=== PATIENT | male | born 1945 | race African-American/Black ===

== ENCOUNTER 2016-10-20 15:57 | Emergency (ER) | payer OTHER ==
[~2016-10-20] VITALS: Ht 188 cm; Wt 79.8 kg
[~2016-10-20 15:57] MED LIST: GLY5T
[2016-10-20] MEDS ORDERED: SODIUM CHLORIDE 0.9% 1,000 ML IV ONE (16:21)
[2016-10-20] MEDS ORDERED: methylPREDNISolone SOD SUCC 125 MG/2 ML VL IV ONE (16:30)
[2016-10-20] MEDS ORDERED: diphenhdrAMINE HCL 50 MG/1 ML VL IV ONE (16:30)
[2016-10-20 16:41] LABS: Basophils # (auto) 0 uL; Basophils % (auto) 0.3 % (0.0-2.0); CONDITION Y; Eosinophils # (auto) 0.1 uL; Eosinophils % (auto) 2.7 % (0.0-7.0); Hematocrit 33.5 % (41.0-53.0); Hemoglobin 11.3 g/dL (13.5-17.5); Lymphocytes # (auto) 1.4 uL; Lymphocytes % (auto) 26.5 % (10.0-50.0); Mean Corpuscular Hgb Conc. 33.6 g/dL (32.0-36.0); Mean Corpuscular Volume 86.6 fL (80.0-100.0); Mean Platelet Volume 8.5 fL (7.4-10.4); Monocytes # (auto) 0.4 uL; Monocytes % (auto) 8.1 % (0.0-12.0); Neutrophils # (auto) 3.3 uL; Neutrophils % (auto) 62.4 % (37.0-80.0); Platelet Count (auto) 259 10^3/uL (140-450); Red Cell Distribution Width 14.2 % (11.6-16.0); White Blood Cell 5.3 10^3/uL (4.4-10.8)
[2016-10-20 16:55] VITALS: BP 153/75
[2016-10-20 17:03] LABS: Albumin 3.3 g/dL (3.4-5.0); Anion Gap 7 (5-15); Aspartate Aminotransferase 9 U/L (15-37); BUN/Creatinine Ratio 8.3; Blood Urea Nitrogen 17 mg/dL (7-18); Calcium 9.1 mg/dL (8.5-10.1); Carbon Dioxide 25 mmol/L (21-32); Chloride 109 mmol/L (98-107); GFR African American 42 mL/min; GFR Non-African American 34 mL/min; Glucose 74 mg/dL (74-106); Potassium 4.1 mmol/L (3.5-5.1); Sodium 141 mmol/L (136-145)
[2016-10-20 17:16] LABS: Alkaline Phosphatase 63 U/L (45-117); Bilirubin, Total 0.4 mg/dL (0.2-1.0); Total Protein 6.8 g/dL (6.4-8.2)
== END 2016-10-20 17:57 | disposition home or self-care (01) ==
LOC: EDUNIT# 15:57 → EDBD 15:57 → ER 16:08
DX: T78.40XA Allergy, unspecified, initial encounter (principal); E11.9 Type 2 diabetes mellitus without complications; I10 Essential (primary) hypertension
CPT/HCPCS: 36415; 71010; 80053; 84484; 85025; 96361; 96374; 96375; 99285; J1200; J2930; J7030

== ENCOUNTER 2021-06-07 19:23 | Inpatient (IN) | payer OTHER ==
[~2021-06-07] VITALS: Ht 188 cm; Wt 89.7 kg
[~2021-06-07 19:23] MED LIST changes: -GLY5T; +GLYB5TAB9
[2021-06-07 20:24] LABS: Hematocrit 41.5 % (41.0-53.0); Hemoglobin 13.8 g/dL (13.5-17.5); Mean Corpuscular Hemoglobin 28.4 pg (28.0-32.0); Mean Corpuscular Hgb Conc. 33.4 g/dL (32.0-36.0); Mean Corpuscular Volume 85.3 fL (80.0-100.0); Red Blood Cells 4.87 10^6/uL (4.5-5.90); Red Cell Distribution Width 13.6 % (11.8-14.3); White Blood Cell 9.6 10^3/uL (4.4-10.8)
[2021-06-07 20:32] LABS: Band Neutrophils % (manual) 0; Basophils % (manual) 0 (0.0-2.0); Blast Cells 0; Eosinophils % (manual) 0 (0-7); Metamyelocytes % 0; Myelocytes % 0; Promyelocytes % 0; Reactive Lymphocytes 0
[2021-06-07 20:33] LABS: BUN/Creatinine Ratio 18.5; Calcium 10.1 mg/dL (8.5-10.1); Potassium 5.2 mmol/L (3.5-5.1)
[2021-06-07 20:38] LABS: Bilirubin, Total 0.5 mg/dL (0.2-1.0); Total Protein 6.6 g/dL (6.4-8.2)
[2021-06-07 21:04] LABS: Lymphocytes % (manual) 4 (10.0-50.0); Monocytes % (manual) 4 (0-12)
[2021-06-08 01:16] LABS: Urine Bacteria FEW /hpf (None Seen); Urine Blood Negative /uL (Negative); Urine Hyaline Cast FEW /lpf (0 - 2); Urine Mucus FEW (None Seen); Urine Specific Gravity 1.014 (1.001-1.035); Urine WBC 2 /hpf (0 - 3)
[2021-06-08] MEDS: SODIUM CHLORIDE 0.9% 1,000 ML IV SCH ×3 (06:15→20:43)
[2021-06-08] MEDS ORDERED: ACETAMINOPHEN 325 MG TAB PO PRN (06:15)
[2021-06-08] MEDS ORDERED: InsuLIN REG 1unit/0.01ml Soln (100units/ml) IV ONE (06:15)
[2021-06-08] MEDS ORDERED: SODIUM CHLORIDE 0.9% 500 ML IV ONE (06:15)
[2021-06-08] MEDS ORDERED: ONDANSETRON HCL 4 MG/2 ML VIAL IV PRN (06:15)
[2021-06-08 07:00] LABS: Basophils # (auto) 0.1 10 ^3/uL (0-0.2); Basophils % (auto) 0.7 % (0.0-2.0); Eosinophils # (auto) 0 10 ^3/uL (0-0.8); Eosinophils % (auto) 0.2 % (0.0-7.0); Hematocrit 34.9 % (41.0-53.0); Lymphocytes # (auto) 1.1 10 ^3/uL (0.4-5.4); Lymphocytes % (auto) 10.5 % (10.0-50.0); Mean Corpuscular Hemoglobin 28.9 pg (28.0-32.0); Mean Corpuscular Hgb Conc. 34.2 g/dL (32.0-36.0); Mean Corpuscular Volume 84.3 fL (80.0-100.0); Monocytes # (auto) 1.1 10 ^3/uL (0-1.3); Monocytes % (auto) 11.4 % (0.0-12.0); Neutrophils # (auto) 7.7 10 ^3/uL (1.6-8.6); Neutrophils % (auto) 77.2 % (37.0-80.0); Red Blood Cells 4.14 10^6/uL (4.5-5.90); Red Cell Distribution Width 13.8 % (11.8-14.3)
[2021-06-08 07:32] LABS: Albumin 2.7 g/dL (3.4-5.0); Calcium 9.3 mg/dL (8.5-10.1); Potassium 5.4 mmol/L (3.5-5.1)
[2021-06-08 07:37] LABS: Bilirubin, Total 0.4 mg/dL (0.2-1.0); Total Protein 5.8 g/dL (6.4-8.2)
[2021-06-08] MEDS ORDERED: ATO40T PO (09:03)
[2021-06-08] MEDS ORDERED: SILD50TA42 PO (09:03)
[2021-06-08] MEDS ORDERED: HYDR-4296 PO (09:03)
[2021-06-08] MEDS ORDERED: AMLO-489 PO (09:03)
[2021-06-08] MEDS ORDERED: HYDR-4902 PO (09:03)
[2021-06-08] MEDS ORDERED: GLIM2TAB33 PO (09:03)
[2021-06-08] MEDS: PANTOPRAZOLE 40 MG TAB PO SCH (11:08)
[2021-06-08] MEDS: InsuLIN REG 1unit/0.01ml Soln (100units/ml) SC SCH ×3 (11:30→22:00)
[2021-06-08] MEDS: ACCU-CHEK COMFORT CURVE STRIP VI SCH ×3 (11:30→22:00)
[2021-06-08] MEDS ORDERED: hydrALAZINE HCL 25 MG TAB PO ONE (11:30)
[2021-06-08] MEDS ORDERED: amLODIPine BESYLATE 5 MG TAB PO ONE (11:30)
[2021-06-08] MEDS ORDERED: DEXTROSE (50%) 50ML SYRG IV SCH (11:30)
[2021-06-08] MEDS ORDERED: SODIUM ZIRCONIUM CYCL 10 GM PAK PO SCH (12:00)
[2021-06-08 13:00] VITALS: BP 155/80
[2021-06-08] MEDS ORDERED: HEPARIN SODIUM (PORCINE) 5000 UNITS/ML 1ML VIAL SC SCH (14:00)
[2021-06-08 17:00] VITALS: BP 153/76
[2021-06-08 20:34] LABS: Sodium Urine 20 mmol/L (40-220)
[2021-06-08 20:37] LABS: Creatinine, Urine 64 mg/dL (30.0-125.0)
[2021-06-08] MEDS: SODIUM ZIRCONIUM CYCL 10 GM PAK PO SCH (21:25)
[2021-06-08 22:00] VITALS: BP 136/69
[2021-06-08] MEDS ORDERED: ATORVASTATIN 20 MG TAB PO SCH (22:00)
[2021-06-08] MEDS: hydrALAZINE HCL 25 MG TAB PO SCH (23:16)
[2021-06-09] MEDS: SODIUM ZIRCONIUM CYCL 10 GM PAK PO SCH ×2 (05:31→13:02)
[2021-06-09] MEDS: SODIUM CHLORIDE 0.9% 1,000 ML IV SCH ×3 (05:32→23:55)
[2021-06-09 06:00] VITALS: BP 118/59
[2021-06-09] MEDS: ACCU-CHEK COMFORT CURVE STRIP VI SCH ×4 (06:27→22:26)
[2021-06-09] MEDS: InsuLIN REG 1unit/0.01ml Soln (100units/ml) SC SCH ×4 (06:27→22:28)
[2021-06-09 09:00] VITALS: BP 135/70
[2021-06-09 09:02] LABS: Basophils # (auto) 0.1 10 ^3/uL (0-0.2); Basophils % (auto) 0.9 % (0.0-2.0); Eosinophils # (auto) 0.1 10 ^3/uL (0-0.8); Hematocrit 30.4 % (41.0-53.0); Hemoglobin 10.4 g/dL (13.5-17.5); Lymphocytes # (auto) 0.5 10 ^3/uL (0.4-5.4); Lymphocytes % (auto) 8.9 % (10.0-50.0); Mean Corpuscular Hemoglobin 28.8 pg (28.0-32.0); Mean Corpuscular Hgb Conc. 34.3 g/dL (32.0-36.0); Mean Corpuscular Volume 84.2 fL (80.0-100.0); Monocytes # (auto) 0.7 10 ^3/uL (0-1.3); Neutrophils # (auto) 4.7 10 ^3/uL (1.6-8.6); Neutrophils % (auto) 77.2 % (37.0-80.0); Nucleated Red Blood Cells % 0.1 %; Red Blood Cells 3.62 10^6/uL (4.5-5.90); Red Cell Distribution Width 13.9 % (11.8-14.3); White Blood Cell 6.1 10^3/uL (4.4-10.8)
[2021-06-09 09:08] LABS: Albumin 2.5 g/dL (3.4-5.0); Calcium 8.8 mg/dL (8.5-10.1); Potassium 4.3 mmol/L (3.5-5.1)
[2021-06-09 09:09] LABS: BUN/Creatinine Ratio 20.4; Bilirubin, Total 0.4 mg/dL (0.2-1.0); Total Protein 5.4 g/dL (6.4-8.2)
[2021-06-09] MEDS: PANTOPRAZOLE 40 MG TAB PO SCH (10:00)
[2021-06-09] MEDS: hydrALAZINE HCL 25 MG TAB PO SCH ×2 (10:00→22:26)
[2021-06-09] MEDS: amLODIPine BESYLATE 5 MG TAB PO SCH (10:00)
[2021-06-09 13:00] VITALS: BP 152/75
[2021-06-09 16:49] VITALS: BP 141/71
[2021-06-09 21:39] VITALS: BP 115/58
[2021-06-09 23:43] LABS: Urine Bacteria NONE SEEN /hpf (None Seen); Urine Blood 2+ /uL (Negative); Urine Specific Gravity 1.009 (1.001-1.035); Urine WBC 3 /hpf (0 - 3)
[2021-06-10] MEDS: SODIUM CHLORIDE 0.9% 1,000 ML IV SCH ×3 (02:07→16:35)
[2021-06-10 04:45] VITALS: BP 138/57
[2021-06-10] MEDS: ACCU-CHEK COMFORT CURVE STRIP VI SCH ×4 (06:29→22:28)
[2021-06-10] MEDS: InsuLIN REG 1unit/0.01ml Soln (100units/ml) SC SCH ×4 (06:30→22:29)
[2021-06-10] MEDS ORDERED: ADENOSINE 76 MG in GIVE UN-DILUTED 0 ML IV ONE (08:05)
[2021-06-10 09:05] VITALS: BP 140/69
[2021-06-10] MEDS: PANTOPRAZOLE 40 MG TAB PO SCH (10:31)
[2021-06-10] MEDS: hydrALAZINE HCL 25 MG TAB PO SCH ×2 (10:31→22:28)
[2021-06-10] MEDS: amLODIPine BESYLATE 5 MG TAB PO SCH (10:32)
[2021-06-10 12:00] VITALS: BP 145/62
[2021-06-10 13:19] LABS: Hepatitis C Antibody Negative (Negative)
[2021-06-10 15:31] LABS: BUN/Creatinine Ratio 13.9; Calcium 8.7 mg/dL (8.5-10.1)
[2021-06-10 16:00] VITALS: BP 149/63
[2021-06-10 22:00] VITALS: BP 134/65
[2021-06-11] MEDS: SODIUM CHLORIDE 0.9% 1,000 ML IV SCH (00:35)
[2021-06-11 05:00] VITALS: BP 169/79
[2021-06-11 05:23] LABS: Potassium 3.4 mmol/L (3.5-5.1)
[2021-06-11 05:29] LABS: BUN/Creatinine Ratio 14.1; Calcium 8.3 mg/dL (8.5-10.1)
[2021-06-11] MEDS: InsuLIN REG 1unit/0.01ml Soln (100units/ml) SC SCH ×2 (06:47→11:30)
[2021-06-11] MEDS: ACCU-CHEK COMFORT CURVE STRIP VI SCH ×2 (06:50→11:44)
[2021-06-11] MEDS: hydrALAZINE HCL 25 MG TAB PO SCH (08:46)
[2021-06-11] MEDS: amLODIPine BESYLATE 5 MG TAB PO SCH (08:47)
[2021-06-11 08:55] VITALS: BP 170/77
[2021-06-11] MEDS ORDERED: cloNIDine HCL 0.1 MG TAB PO ONE (12:30)
[2021-06-11 12:47] VITALS: BP 169/77
[2021-06-11 13:49] VITALS: BP 169/77
[2021-06-11 14:26] VITALS: BP 130/71
== END 2021-06-11 15:40 | disposition home or self-care (01) | DRG 70 ==
LOC: ER 19:23 → EDBD 19:23 → OVERFLOW 06-08 06:13 → TELE 06-08 07:19 → TELE-CENTR 06-08 11:29
PROVIDERS: ADMIT Internal Medicine; ATTEND Family Medicine
DX: G93.41 Metabolic encephalopathy (principal); N17.0 Acute kidney failure with tubular necrosis; D68.9 Coagulation defect, unspecified; N18.4 Chronic kidney disease, stage 4 (severe); E11.65 Type 2 diabetes mellitus with hyperglycemia; S00.12XA Contusion of left eyelid and periocular area, initial encounter; E88.09 Other disorders of plasma-protein metabolism, not elsewhere classified; D63.1 Anemia in chronic kidney disease; E11.22 Type 2 diabetes mellitus with diabetic chronic kidney disease; E78.00 Pure hypercholesterolemia, unspecified; E86.0 Dehydration; F17.210 Nicotine dependence, cigarettes, uncomplicated; R33.9 Retention of urine, unspecified; W18.39XA Other fall on same level, initial encounter; Z20.822 Contact with and (suspected) exposure to COVID-19; I12.9 Hypertensive chronic kidney disease with stage 1 through stage 4 chronic kidney disease, or unspecified chronic kidney disease; I48.91 Unspecified atrial fibrillation; I49.5 Sick sinus syndrome; Z82.3 Family history of stroke; Z83.3 Family history of diabetes mellitus; Z85.46 Personal history of malignant neoplasm of prostate; Z85.528 Personal history of other malignant neoplasm of kidney; Z88.8 Allergy status to other drugs, medicaments and biological substances; Z92.3 Personal history of irradiation; Y93.89 Activity, other specified; Y92.89 Other specified places as the place of occurrence of the external cause; Y99.8 Other external cause status; I25.10 Atherosclerotic heart disease of native coronary artery without angina pectoris
CPT/HCPCS: 36415; 70450; 71045; 72125; 76775; 78452; 80048; 80053; 81001; 82306; 82570; 82962; 83036; 83605; 83880; 83970; 84100; 84156; 84300; 84484; 85007; 85025; 85027; 86803; 87040; 87086; 87340; 93005; 93017; 93306; 93886; 96361; 96374; G0378; J0153; J1815; J2405